=== PATIENT | male | born 1975 | race American Indian/Alaskan Native ===

== ENCOUNTER 2021-07-14 12:44 | Emergency (ER) | payer SELFPAY ==
[2021-07-14 13:17] VITALS: BP 129/76
--- NOTE | 2021-07-14 13:32 | Event Note ---
ED Screening Note ED Screening Note: 45 yo with HIV comes to ER with many complaints- headache, cp, sob, rash, generalized body aches/swelling and weakness PMH HIV RA HOME MEDS HIV ALLERGIES NONE PSH COLON-LASER SURGERY This initial assessment/diagnostic orders/clinical plan/treatment(s) is/are subject to change based on patients health status, clinical progression and re- assessment by fellow clinical providers in the ED. Further treatment and workup at subsequent clinical providers discretion. Patient/guardian urged not to elope from the ED as their condition may be serious if not clinically assessed and managed. Initial orders include: LABS XRAY EKG
--- NOTE | 2021-07-14 14:02 | XRay Report ---
CHEST 2 VIEWS INDICATION: Chest Pain. COMPARISON: None FINDINGS: Support devices: None. Heart: Within normal limits. Lungs/pleura: No acute air space or interstitial disease. No pneumothorax. Additional findings: None. IMPRESSION: No acute findings. Signer Name: Kimani Hylton Jr, MD Signed: 07/14/2021 1:56 PM Workstation Name: [id number]
[2021-07-14] MEDS ORDERED: KETOROLAC 30 MG/1 ML INJ IV ONE (15:01)
[2021-07-14 15:15] LABS: Hematocrit 37.9 % (35.5-45.6); Hemoglobin 12.3 gm/dl (11.8-15.2); Mean Corpuscular HGB Conc 33 % (32-34); Mean Corpuscular Volume 94 fl (84-94); Platelet Count 438 K/mm3 (140-440); Red Blood Count 4.03 M/mm3 (3.65-5.03); Red Cell Distribution Width 16.3 % (13.2-15.2)
[2021-07-14 15:38] LABS: Alanine Aminotransferase 6 units/L (7-56); Albumin 3.4 g/dL (3.9-5); BUN/Creatinine Ratio 8; Blood Urea Nitrogen 7 mg/dL (9-20); Calcium 9.2 mg/dL (8.4-10.2); Hemolysis Index 17
[2021-07-14 15:49] LABS: Bilirubin,Urine NEG (Negative); Blood,Urine NEG (Negative); Color,Urine Yellow (Yellow); Mucus,Urine FEW /HPF; Protein,Urine <15 mg/dL mg/dL (Negative)
[2021-07-14] MEDS ORDERED: PENICILLIN G BENZATHINE 1.2 MILLION UNIT/2 ML INJ IM ONE (16:39)
--- NOTE | 2021-07-14 17:14 | Emergency Department Report ---
ED General Adult HPI - General Chief complaint: Headache Stated complaint: RA FLARE, SWOLLEN JOINTS, FLUID Time Seen by Provider: 07/14/21 13:26 Source: patient Mode of arrival: Ambulatory Limitations: No Limitations - History of Present Illness Initial comments: Patient is a 45-year-old F [place]ian male with a past medical history of HIV as well as rheumatoid arthritis who is presenting with body aches. Patient states that for the past 3 weeks he has had some increased pain in his joints specifically his elbows wrists fingers and knees. Patient states just very achy but states the pain is estimated at approximately a 4 out of [address] ates he also has a rash all over his body as well. Denies any fevers cough cold congestion. States he has off and on mild headaches but denies any thunderclap headaches neck stiffness. Severity scale (0 -10): 5 - Related Data Previous Rx's Medication Instructions Recorded Last Taken Type Ketorolac [Toradol] 10 mg PO Q6H PRN #20 tablet 07/14/21 Unknown Rx Allergies Allergy/AdvReac Type Severity Reaction Status Date / Time No Known Allergies Allergy Unverified 07/14/21 15:21 ED Review of Systems ROS: Stated complaint: RA FLARE, SWOLLEN JOINTS, FLUID Other details as noted in HPI Comment: All other systems reviewed and negative ED Past Medical Hx - Past Medical History Previous Medical History?: Yes Hx HIV: Yes Additional medical history: Rheumatoid arthritis - Surgical History Past Surgical History?: Yes Additional Surgical History: colectomy - Medications Home Medications: Home Medications Medication Instructions Recorded Confirmed Last Taken Type Ketorolac [Toradol] 10 mg PO Q6H PRN #20 tablet 07/14/21 Unknown Rx ED Physical Exam - General Limitations: No Limitations General appearance: alert, in no apparent distress - Head Head exam: Present: atraumatic, normocephalic - Eye Eye exam: Present: normal appearance, PERRL, EOMI - ENT ENT exam: Present: mucous membranes moist - Neck Neck exam: Present: normal inspection - Respiratory Respiratory exam: Present: normal lung sounds bilaterally. Absent: respiratory distress, wheezes, rales, rhonchi - Cardiovascular Cardiovascular Exam: Present: regular rate, normal rhythm, normal heart sounds. Absent: systolic murmur, diastolic murmur, rubs, gallop - GI/Abdominal GI/Abdominal exam: Present: soft, normal bowel sounds. Absent: distended, tenderness, guarding, rebound - Rectal Rectal exam: Present: deferred - Extremities Exam Extremities exam: Present: normal inspection - Back Exam Back exam: Present: normal inspection - Neurological Exam Neurological exam: Present: alert, oriented X3 - Psychiatric Psychiatric exam: Present: normal affect, normal mood - Skin Skin exam: Present: warm, dry, intact, normal color, other (Patient with a discoid type rash on his palms. Is maculopapular appearance on the arms.). Absent: rash ED Course Vital Signs 07/14/21 13:15 Temperature 98.8 F Pulse Rate 102 H Respiratory 20 Rate Blood Pressure 129/76 O2 Sat by Pulse 100 Oximetry ED Medical Decision Making - Lab Data Result diagrams: 07/14/21 14:36 07/14/21 14:36 - Medical Decision Making Rash on the patient's palms was worrisome for syphilis. Patient states he has not noticed any sores on his penis. Patient had RPR which was positive. Patient given Bicillin and patient also given outpatient follow-up. Critical care attestation.: If time is entered above; I have spent that time in minutes in the direct care of this critically ill patient, excluding procedure time. ED Disposition Clinical Impression: Secondary syphilis, Arthralgia Disposition: 01 HOME / SELF CARE / HOMELESS Is pt being admited?: No Does the pt Need Aspirin: No Condition: Stable Instructions: Syphilis, Joint Pain, [id number] Additional Instructions: You will need to have shot of the antibiotic Bicillin in 1 week and again 1 week after that. This will constitute a full treatment for secondary syphilis Referrals: REMY ELIZABETH MD [Staff Physician] - 3-5 Days NORTON JEFERSON AYALA MD [Referring] - 3-5 Days Time of Disposition: 17:14
--- NOTE | 2021-07-15 11:18 | Electrocardiograph Report ---
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
== END 2021-07-14 18:35 | disposition home or self-care (01) ==
LOC: ED 12:44
DX: M25.50 Pain in unspecified joint (principal); A51.49 Other secondary syphilitic conditions; Z21 Asymptomatic human immunodeficiency virus [HIV] infection status; Z90.49 Acquired absence of other specified parts of digestive tract
CPT/HCPCS: 36415; 71046; 80053; 81001; 82550; 85027; 86592; 86593; 93005; 96372; 96374; 99284; J0561; J1885

== ENCOUNTER 2022-03-04 09:40 | Emergency (ER) | payer SELFPAY ==
[2022-03-04 10:12] VITALS: BP 132/83
[2022-03-04] MEDS ORDERED: PENICILLIN G BENZATHINE 1.2 MILLION UNIT/2 ML INJ IM ONE (13:33)
--- NOTE | 2022-03-04 14:15 | Emergency Department Report ---
- General Chief complaint: Extremity Problem,Nontraumatic Stated complaint: SYPHILLIS TREATMENT Time Seen by Provider: 03/04/22 12:51 Source: patient Mode of arrival: Ambulatory Limitations: No Limitations - History of Present Illness Initial comments: 46-year-old black male with a past medical history of HIV and syphilis presents to the emergency department for evaluation of rash to bilateral hands. He states that he knows that rash is the rash is secondary to syphilis for which he was being treated with a series of 3 penicillin shots, but he took the first shot and has missed his appointment for the other 2 shots. He states that now rash seems to be getting worse and now has some pain, so he presented here to see if he can get another shot. He denies fever. MD complaint: rash -: Gradual, week(s) Location: L hand, R hand Severity: mild, moderate Severity scale (0 -10): 5 Quality: aching Consistency: constant Treatments Prior to Arrival: none - Related Data Previous Rx's Medication Instructions Recorded Last Taken Type Ketorolac [Toradol] 10 mg PO Q6H PRN #20 tablet 07/14/21 Unknown Rx Allergies Allergy/AdvReac Type Severity Reaction Status Date / Time No Known Allergies Allergy Unverified 07/14/21 15:21 Abscess Boil HPI - HPI Chief Complaint: Extremity Problem,Nontraumatic Stated Complaint: SYPHILLIS TREATMENT Time Seen by Provider: 03/04/22 12:51 Home Medications: Previous Rx's Medication Instructions Recorded Last Taken Type Ketorolac [Toradol] 10 mg PO Q6H PRN #20 tablet 07/14/21 Unknown Rx Allergies/Adverse Reactions: Allergies Allergy/AdvReac Type Severity Reaction Status Date / Time No Known Allergies Allergy Unverified 07/14/21 15:21 ED Review of Systems ROS: Stated complaint: SYPHILLIS TREATMENT Other details as noted in HPI Comment: All other systems reviewed and negative Constitutional: denies: chills, fever, weakness ENT: denies: congestion Respiratory: denies: cough, shortness of breath Cardiovascular: denies: chest pain, palpitations Gastrointestinal: denies: abdominal pain, nausea, vomiting Genitourinary: denies: urgency, dysuria Musculoskeletal: denies: back pain Skin: rash, lesions Neurological: denies: headache, weakness Psychiatric: denies: anxiety, depression ED Past Medical Hx - Past Medical History Hx HIV: Yes Additional medical history: Rheumatoid arthritis - Surgical History Additional Surgical History: colectomy - Medications Home Medications: Home Medications Medication Instructions Recorded Confirmed Last Taken Type Ketorolac [Toradol] 10 mg PO Q6H PRN #20 tablet 07/14/21 Unknown Rx ED Physical Exam - General Limitations: No Limitations General appearance: alert, in no apparent distress - Head Head exam: Present: atraumatic, normocephalic - Eye Eye exam: Present: normal appearance. Absent: scleral icterus, conjunctival injection, periorbital swelling, periorbital tenderness - Neck Neck exam: Present: normal inspection, full ROM. Absent: tenderness, lymphadenopathy - Respiratory Respiratory exam: Present: normal lung sounds bilaterally. Absent: respiratory distress, wheezes, rales, rhonchi, stridor, chest wall tenderness - Cardiovascular Cardiovascular Exam: Present: tachycardia, normal heart sounds - GI/Abdominal GI/Abdominal exam: Present: soft, normal bowel sounds. Absent: distended, tenderness, guarding, rebound, rigid - Extremities Exam Extremities exam: Absent: normal inspection (Diffuse rash over palms of bilateral hands noted to be in various stages of healing. No drainage noted.) - Back Exam Back exam: Present: normal inspection - Neurological Exam Neurological exam: Present: alert, oriented X3 - Psychiatric Psychiatric exam: Present: normal affect, normal mood - Skin Skin exam: Present: warm, dry, normal color, rash. Absent: intact ED Course Vital Signs 03/04/22 10:10 Temperature 98.1 F Pulse Rate 101 H Respiratory 18 Rate Blood Pressure 132/83 [Right] ED Medical Decision Making - Medical Decision Making 46-year-old black male with a past medical history of HIV and syphilis presents to the emergency department for evaluation of rash to bilateral hands. He states that he knows that rash is the rash is secondary to syphilis for which he was being treated with a series of 3 penicillin shots, but he took the first shot and has missed his appointment for the other 2 shots. He states that now rash seems to be getting worse and now has some pain, so he presented here to see if he can get another shot. He denies fever. Noted to have rash to palms of bilateral hands consistent with rash of secondary syphilis. Patient treated with Bicillin IM 2,400,000 units IM x1 and advised to follow-up with primary care provider or infectious disease doctor or [facility] for further evaluation and management. He is advised to return to the emergency department for any concerning symptoms. He verbalizes understanding of and agreement with plan of care. Critical care attestation.: If time is entered above; I have spent that time in minutes in the direct care of this critically ill patient, excluding procedure time. ED Disposition Clinical Impression: Rash of secondary syphilis Disposition: HOME / SELF CARE / HOMELESS Is pt being admited?: No Does the pt Need Aspirin: No Condition: Stable Instructions: Syphilis, Antibiotic Medicine, Adult, [id number] Additional Instructions: Follow-up with infectious disease for further treatment. Return to the emergency department as needed. Referrals: ERIBERTO FAIRCHILD MD [Primary Care Provider] - 3-5 Days VENITA URBINA MD [Staff Physician] - 3-5 Days [facility] [Outside] - 3-5 Days [facility] [Outside] - 3-5 Days Time of Disposition: 14:14
== END 2022-03-04 14:58 | disposition home or self-care (01) ==
LOC: ED 09:40
DX: A53.9 Syphilis, unspecified (principal); R21 Rash and other nonspecific skin eruption; Z98.890 Other specified postprocedural states; Z79.899 Other long term (current) drug therapy
CPT/HCPCS: 96372; 99282; J0561